=== PATIENT | female | born 1960 | race Hispanic/Latino ===

== ENCOUNTER 2017-01-20 14:32 | Observation (INO) | payer SELFPAY ==
[~2017-01-20] VITALS: Ht 157.5 cm; Wt 82.9 kg
[~2017-01-20 14:32] MED LIST: ACCUPRIL5 MG OR; ACCURETI1 OR; ACTOS15 MG OR; ASA LO-DOSE81 MG OR; ASPIRIN81 MG PO; CARDIZEM CD240 MG OR; DIABETA1.25 MG OR; DIABETA2.5 MG OR; DILTIAZEM180 M1 OR; FEXOFENADINE60 MG OR; GLIMEPIRIDE4 MG PO; GLUCOPHAGE500 MG OR; GLYBURIDE2.5 MG OR; GLYBURIDE5 MG OR; HALFPRIN81 MG OR; HYDRALAZINE10 MG OR; LIPITOR20 MG OR; LISINOP/HCTZ1 TA1 OR; LOPRESSOR100 MG OR; LOPRESSOR25 M1 PO; LOSARTAN POT50 MG PO; METFORMIN1000 MG OR; METOPROL TAR25 M1 OR; METOPROLOL50 MG OR; MIGRAINE OR; NITROGLYCER0.4 MG SL; PRAVACHOL40 MG OR; PRAVASTATIN40 MG PO; ZANTAC150 M1 OR; ZANTAC150 M1 PO
--- NOTE | 2017-01-20 14:46 | NUR ---
PT FULLY AMBULATORY INTO ED WITHOUT DEFICIT. FULL NEURO NEGATIVE. NO DRIFT OR DEFICITS NOTED. FULL FACIAL SYMMETRY NOTED. VSS. AT BEDSIDE
--- NOTE | 2017-01-20 15:36 | NUR ---
PT STATES SX TO FAVE AND LT ARM ARE RESOLVING. VSS. AWAITING TEST RESULTS
[2017-01-20 15:48] LABS: HEMATOCRIT 39.9 % (37.0-47.0); HEMOGLOBIN 13.1 g/dl (12.0-16.0); IMMATURE GRANULOCYTES 0.2 % (0.0-1.0); MEAN CELL VOLUME 88.9 fL CALC (80.0-100.0); MEAN CORPUSCULAR HGB 29.2 pG CALC (26.0-32.0); MEAN CORPUSCULAR HGB CONC 32.8 g/L CALC (32.0-36.0); NEUT# 5.5 thou/uL (2.00-7.15); RED BLOOD COUNT 4.49 mill/uL (4.20-5.60); RED CELL DISTRI WIDTH 13.7 % (11.5-15.5)
--- NOTE | 2017-01-20 16:06 | NUR ---
PT STATES THE NUMBNESS THAT SHE WAS EXPERIRENCING IN LT FACE AND LT ARM HAS TOTALLY RESOLVED AT THIS TIME. VSS. AT BEDSIDE
[2017-01-20 16:09] LABS: ALBUMIN 4.3 g/dL (3.2-5.0); ALKALINE PHOSPHATASE 131 u/l (38-126); ANION GAP 16 (6-22 (CALC)); BILIRUBIN, TOTAL 0.7 mg/dL (0.0-1.4); BUN 10 mg/dL (7-17); BUN/CREATININE RATIO 18 (12-20 (CALC)); CALCIUM 8.8 mg/dL (8.4-10.2); CARBON DIOXIDE 26 mmol/l (22-30); CHLORIDE 100 mmol/l (95-108); CREATININE 0.5 mg/dL (0.5-1.0); GFR > 60 ML/MIN (>=60 (CALC)); GFR FOR AFR.AMER. > 60 ML/MIN (>=60 (CALC)); GLUCOSE 344 mg/dL (65-105); POTASSIUM 3.9 mmol/l (3.5-5.1); SGOT/AST 40 u/l (14-36); SGPT/ALT 48 u/l (9-52); SODIUM 138 mmol/l (137-146); TOTAL PROTEIN 7.6 g/dL (6.3-8.2)
[2017-01-20] MEDS ORDERED: FUROSEMIDE40 MG PO (16:09)
[2017-01-20] MEDS ORDERED: GLIPIZIDE ER5 MG PO (16:10)
[2017-01-20] MEDS ORDERED: CLOPIDOGREL75 MG PO (16:11)
[2017-01-20] MEDS ORDERED: FLEXERIL5 M1 PO (16:11)
[2017-01-20] MEDS ORDERED: GLIMEPIRIDE2 MG PO (16:12)
[2017-01-20] MEDS ORDERED: LEVEMIR100 UNIT/M SC (16:13)
[2017-01-20 16:17] LABS: MYOGLOBIN 21 ng/mL (0 - 62)
--- NOTE | 2017-01-20 17:21 | NUR ---
ATTEMPTED TO CALL REPORT, NURSE UNAVAILABLE, [place]O RETURN CALL.
--- NOTE | 2017-01-20 17:48 | NUR ---
CALLED REPORT TO YVES MASCORRO. TO [facility] VIA [facility] ON TELEMETRY
--- NOTE | 2017-01-20 17:55 | NUR ---
REPORT RECEIVED FROM TIFFANY IN ED, PT ARRIVED ON UNIT VIA W/C, ALERT AND ORIENTED X 3, DENIES PAIN/DISCOMFORT OR ANY SORT, SETTLED IN BED AND ORIENTED TO ROOM AND MAGI SCHRADER. NEURO CHECKS DONE AND NO DEFICITS OBSERVED-EQUAL STRENGT TO BOTH ARMS, FULL ROM TO ALL EXTREMETIES, FACIAL EQUALITY, SMILE EVEN. WILL CONTINUE TO MONITOR, SPOUSE AT BEDSIDE.
[2017-01-20 18:02] VITALS: BP 140/72
[2017-01-20 18:13] LABS: URINE BILIRUBIN - DIPSTICK NEGATIVE (NEGATIVE); URINE BLOOD DIPSTICK NEGATIVE (NEGATIVE); URINE CLARITY CLEAR; URINE COLOR YELLOW; URINE GLUCOSE - DIPSTICK >=1000 mg/dL (NEGATIVE); URINE KETONE NEGATIVE (NEGATIVE); URINE LEUK ESTERASE NEGATIVE (NEGATIVE); URINE NITRITE - DIPSTICK NEGATIVE (Negative); URINE PROTEIN - DIPSTICK NEGATIVE (NEG-TRACE); URINE UROBILINOGEN - DIPSTICK 0.2 E.U./dL (0.2)
[2017-01-20 19:25] LABS: BARBITURATES NEGATIVE (NEGATIVE); COCAINE NEGATIVE (NEGATIVE); METHADONE NEGATIVE (NEGATIVE); OXCYCODONE NEGATIVE (NEGATIVE); TETRAHYDROCANNABIONOL NEGATIVE (NEGATIVE); TRICYLIC ANTIDEPRESSANTS NEGATIVE (NEGATIVE)
[2017-01-20 19:30] VITALS: BP 136/69
--- NOTE | 2017-01-20 19:49 | NUR ---
PT IN BED WATCHING TV, A/O X3, CLEAR SPEECH. DENIES PAIN OR NUMBNESS. NO DROOPING NOTICED TO FACE. STRONG SORT MANAGER AND LEG STRENGTH. ADMITS TO DRINKING FLUIDS AND SOLIDS WITH NO DIFFICULTY. LR INFUSING TO LW AT 100CC/HR. ENCOURAGED TO USE CALL LIGHT FOR ASSISTANCE. WILL CONTINUE TO MONITOR.
[2017-01-21 00:20] VITALS: BP 131/69
--- NOTE | 2017-01-21 00:20 | NUR ---
RESTING IN BED WITH EYES CLOSED, RESPIRATIONS EVEN AND UNLABORED.
--- NOTE | 2017-01-21 04:10 | NUR ---
IV FLUIDS COMPLETE, OOB TO BATHROOOM WITH STEADY GAIT. DENIES CHEST OR WEAKNESS. A/O X3.
[2017-01-21 04:20] VITALS: BP 146/81
[2017-01-21 07:00] LABS: ANION GAP 13 (6-22 (CALC)); BUN 9 mg/dL (7-17); BUN/CREATININE RATIO 19 (12-20 (CALC)); CALCIUM 8.9 mg/dL (8.4-10.2); CARBON DIOXIDE 29 mmol/l (22-30); CHLORIDE 104 mmol/l (95-108); CREATININE 0.5 mg/dL (0.5-1.0); GFR > 60 ML/MIN (>=60 (CALC)); GFR FOR AFR.AMER. > 60 ML/MIN (>=60 (CALC)); GLUCOSE 92 mg/dL (65-105); MAGNESIUM 1.9 mg/dL (1.6-2.3); POTASSIUM 3.4 mmol/l (3.5-5.1); SODIUM 142 mmol/l (137-146)
--- NOTE | 2017-01-21 07:00 | NUR ---
RECEIVED BEDSIDE REPORT FROM ZARI BOLTON. PT RESTING IN BED WITH EYES CLOSED, AWAKENS EASILY. AT BEDSIDE. RESPS EVEN AND UNLABORED ON ROOM AIR, TELE MONITOR IN PLACE. VOICES NO C/O AT THIS TIME. PLAN OF CARE DISCUSSED. SAFETY PRECAUTIONS REINFORCED. BED IN LOWEST POSITION WITH WHEELS LOCKED. CALL LIGHT WITHIN REACH. ENCOURAGED PT AND FAMILY TO CALL FOR ANY NEEDS.
[2017-01-21 07:56] VITALS: BP 132/53
[2017-01-21 08:11] VITALS: BP 132/53
--- NOTE | 2017-01-21 08:30 | NUR ---
TO ULTRASOUND IN STABLE CONDITION VIA WHEELCHAIR ACCOMPANIED BY FLASH BOLTON.
--- NOTE | 2017-01-21 09:30 | NUR ---
FROM ULTRASOUND VIA WHEELCHAIR ACCOMPANIED BY KRUPA MARINELLI.
--- NOTE | 2017-01-21 10:30 | NUR ---
DR LOCO IN WITH PT, NEW ORDERS RECEIVED.
[2017-01-21] MEDS ORDERED: NOVOLOG FL100 UNIT/M SC (10:55)
[2017-01-21] MEDS ORDERED: LEVEMIR FL100 UNIT/M SC (10:55)
--- NOTE | 2017-01-21 11:25 | NUR ---
Discharge instructions given. Patient verbalizes understanding of same. Discharged in stable condition via Wheelchair to Home with family. All belongings sent with pt.
== END 2017-01-21 11:25 | disposition home or self-care (01) | DRG 93 ==
LOC: ENPENDDIS → ED 14:32 → ED-I 16:20 → ED 17:06 → MS2 17:07
PROVIDERS: Emergency Medicine; ADMIT Internal Medicine; ATTEND Internal Medicine
DX: R20.0 Anesthesia of skin (principal); E11.65 Type 2 diabetes mellitus with hyperglycemia; I10 Essential (primary) hypertension; M79.602 Pain in left arm; R29.898 Other symptoms and signs involving the musculoskeletal system; I25.10 Atherosclerotic heart disease of native coronary artery without angina pectoris; E78.5 Hyperlipidemia, unspecified; E87.6 Hypokalemia; E66.01 Morbid (severe) obesity due to excess calories; Z79.4 Long term (current) use of insulin; Z79.02 Long term (current) use of antithrombotics/antiplatelets; Z95.5 Presence of coronary angioplasty implant and graft; Z95.1 Presence of aortocoronary bypass graft
CPT/HCPCS: G0378

== ENCOUNTER 2021-11-16 06:44 | Day surgery (SDC) | payer BC ==
[~2021-11-16 06:44] MED LIST changes: +ALLEGRA ALLERGY60 MG PO; +BYDUREON B2 MG/0.85; +CLOPIDOGREL75 MG PO; +EQL IBUPROFEN200 M1 PO; +FLEXERIL5 M1 PO; +FUROSEMIDE40 MG PO; +GLIMEPIRIDE2 MG PO; +GLIPIZIDE ER5 MG PO; +JARDIANCE25 MG; +LEVEMIR FL100 UNIT/M SC; +LEVEMIR100 UNIT/M SC; +LIPITOR80 M1 PO; +METFORMIN HCL1000 MG PO; +NOVOLOG FL100 UNIT/M SC; +PEPCID20 MG PO; +VITAMIN B-121000 MCG PO
[2021-11-16 09:36] VITALS: BP 135/61
== END 2021-11-16 09:47 | disposition home or self-care (01) | DRG 951 ==
LOC: ENDO 06:44
PROVIDERS: ATTEND Surgery
PROC: 0DJD8ZZ Inspection of Lower Intestinal Tract, Via Natural or Artificial Opening Endoscopic (ICD-10-PCS; principal; 2021-11-16)
DX: Z12.11 Encounter for screening for malignant neoplasm of colon (principal); K64.4 Residual hemorrhoidal skin tags; K64.8 Other hemorrhoids; I10 Essential (primary) hypertension; E11.9 Type 2 diabetes mellitus without complications; Z95.1 Presence of aortocoronary bypass graft; Z79.84 Long term (current) use of oral hypoglycemic drugs

== ENCOUNTER 2022-03-02 07:28 | Day surgery (SDC) | payer BC ==
[~2022-03-02] VITALS: Ht 160 cm; Wt 63.0 kg
[~2022-03-02 07:28] MED LIST changes: -JARDIANCE25 MG; +JARDIANCE25 MG PO; +TORADOL PO
[2022-03-02] MEDS ORDERED: GABAPENTIN100 MG PO (08:02)
[2022-03-02] MEDS ORDERED: GLIPIZIDE ER5 MG PO (08:02)
[2022-03-02] MEDS ORDERED: CALTRATE 600+D31 TAB PO (08:03)
[2022-03-02 10:06] VITALS: BP 175/60
== END 2022-03-02 09:45 | disposition home or self-care (01) | DRG 558 ==
LOC: ORM 07:28
PROVIDERS: ATTEND Physical Medicine & Rehabilitation
DX: M75.50 Bursitis of unspecified shoulder (principal); G89.4 Chronic pain syndrome
CPT/HCPCS: Q9967

== ENCOUNTER 2022-03-15 10:29 | Emergency (ER) | payer BC ==
[~2022-03-15] VITALS: Ht 160 cm; Wt 614.8 kg
[~2022-03-15 10:29] MED LIST changes: +CALTRATE 600+D31 TAB PO; +GABAPENTIN100 MG PO
[2022-03-15 12:33] LABS: HEMATOCRIT 40.5 % (37.0-47.0); HEMOGLOBIN 13.2 g/dl (12.0-16.0); IMMATURE GRANULOCYTES 0.2 % (0.0-5.0); MEAN CELL VOLUME 92.9 fL CALC (80.0-100.0); MEAN CORPUSCULAR HGB 30.3 pG CALC (26.0-32.0); MEAN CORPUSCULAR HGB CONC 32.6 g/dL CAL (32.0-36.0); NEUT# 6.07 thou/uL (2.00-7.15); RED BLOOD COUNT 4.36 mill/uL (4.20-5.60); RED CELL DISTRI WIDTH 13.7 % (11.5-15.5)
[2022-03-15 12:39] LABS: ALBUMIN 3.8 g/dL (3.2-5.0); ALKALINE PHOSPHATASE 100 u/l (38-126); BILIRUBIN, TOTAL 0.6 mg/dL (0.0-1.4); BUN 12 mg/dL (8-23); BUN/CREATININE RATIO 25 (12-20 (CALC)); CARBON DIOXIDE 25 mmol/l (22-30); CHLORIDE 107 mmol/l (95-108); CREATININE 0.5 mg/dL (0.5-1.0); GFR FOR AFR.AMER. > 60 ML/MIN (>=60 (CALC)); GFR OTHER RACES > 60 ML/MIN (>=60 (CALC)); LIPASE 69 u/l (23-300); SGOT/AST 22 u/l (9-36); SODIUM 137 mmol/l (137-146); TOTAL PROTEIN 6.4 g/dL (6.3-8.2)
[2022-03-15 12:41] LABS: ANION GAP 9 (6-22 (CALC)); POTASSIUM 3.6 mmol/l (3.5-5.1)
[2022-03-15 13:23] LABS: URINE BILIRUBIN - DIPSTICK NEGATIVE (NEGATIVE); URINE BLOOD DIPSTICK NEGATIVE (NEGATIVE); URINE COLOR YELLOW; URINE GLUCOSE - DIPSTICK >=1000 mg/dL (NEGATIVE); URINE KETONE NEGATIVE (NEGATIVE); URINE LEUK ESTERASE NEGATIVE (NEGATIVE); URINE PROTEIN - DIPSTICK NEGATIVE (NEG-TRACE); URINE UROBILINOGEN - DIPSTICK 0.2 E.U./dL (0.2)
[2022-03-15 13:25] LABS: URINE NITRITE - DIPSTICK NEGATIVE (Negative)
[2022-03-15] MEDS ORDERED: PROTONIX40 M2 PO (15:42)
[2022-03-15 15:53] VITALS: BP 163/61
== END 2022-03-15 16:25 | disposition home or self-care (01) | DRG 392 ==
LOC: ED 10:29
PROVIDERS: Family Medicine
DX: R10.12 Left upper quadrant pain (principal); E11.9 Type 2 diabetes mellitus without complications; Z79.84 Long term (current) use of oral hypoglycemic drugs
CPT/HCPCS: Q9967

== ENCOUNTER 2022-07-27 10:27 | Day surgery (SDC) | payer BC ==
[~2022-07-27] VITALS: Ht 160 cm; Wt 61.7 kg
[~2022-07-27 10:27] MED LIST changes: +PROTONIX40 M2 PO
[2022-07-27 19:26] VITALS: BP 170/70
== END 2022-07-27 12:57 | disposition home or self-care (01) | DRG 552 ==
LOC: ORM 10:27
PROVIDERS: ATTEND Physical Medicine & Rehabilitation Pain Medicine
DX: M47.812 Spondylosis without myelopathy or radiculopathy, cervical region (principal)

== ENCOUNTER → 2022-10-31 | Emergency (ER) | payer SELFPAY ==
[~2022-10-31] VITALS: Ht 160 cm; Wt 62.8 kg
[2022-10-31] VITALS (7 sets, daily range): BP systolic 111–178; BP diastolic 44–58
[~2022-10-31] MED LIST changes: +TRAMADOL HYDROC50 M1 PO
[2022-10-31 05:58] LABS: BASO% 0.4 % (0-3); EOS% 1.7 % (0-8); HEMATOCRIT 39.6 % (37.0-47.0); HEMOGLOBIN 12.5 g/dl (12.0-16.0); LYMPH% 20.8 % (15-41); MEAN CELL VOLUME 87.6 fL CALC (80.0-100.0); MEAN CORPUSCULAR HGB 27.7 pG CALC (26.0-32.0); MEAN CORPUSCULAR HGB CONC 31.6 g/dL CAL (32.0-36.0); MONO% 6.6 % (2-13); NEUT# 3.66 thou/uL (2.00-7.15); NEUT% 70.5 % (42-76); RED BLOOD COUNT 4.52 mill/uL (4.20-5.60); RED CELL DISTRI WIDTH 13.5 % (11.5-15.5)
[2022-10-31 06:12] LABS: ALBUMIN 4.2 g/dL (3.2-5.0); ALKALINE PHOSPHATASE 97 u/l (38-126); ANION GAP 11 (6-22 (CALC)); BILIRUBIN, TOTAL 0.7 mg/dL (0.02-1.3); BUN 10 mg/dL (8-23); BUN/CREATININE RATIO 17 (12-20 (CALC)); CARBON DIOXIDE 23 mmol/l (22-30); CHLORIDE 110 mmol/l (95-108); CPK 54 u/l (30-135); CREATININE 0.6 mg/dL (0.5-1.0); GFR FOR AFR.AMER. > 60 ML/MIN (>=60 (CALC)); GFR OTHER RACES > 60 ML/MIN (>=60 (CALC)); POTASSIUM 3.6 mmol/l (3.5-5.1); SGOT/AST 22 u/l (9-36); SODIUM 140 mmol/l (137-146); TOTAL PROTEIN 7.1 g/dL (6.3-8.2)
== END | disposition home or self-care (01) | DRG 556 ==
LOC: ED 05:11
PROVIDERS: Internal Medicine
DX: M79.662 Pain in left lower leg (principal); E11.9 Type 2 diabetes mellitus without complications; Z79.84 Long term (current) use of oral hypoglycemic drugs; M62.838 Other muscle spasm